=== PATIENT | male | born 2000 | race Caucasian/White ===

== ENCOUNTER 2022-03-02 17:49 | Emergency (ER) | payer OTHER ==
[~2022-03-02] VITALS: Ht 182.9 cm; Wt 81.8 kg
[2022-03-02 17:50] VITALS: BP 135/68
[2022-03-02] MEDS ORDERED: D ME PO (17:59)
[2022-03-02] MEDS ORDERED: VENTAER INH (18:50)
[2022-03-02] MEDS ORDERED: MUCI600T31 PO (18:50)
== END 2022-03-02 19:51 | disposition home or self-care (01) ==
LOC: M ED 17:49
DX: J06.9 Acute upper respiratory infection, unspecified (principal); Z20.822 Contact with and (suspected) exposure to COVID-19; Z77.098 Contact with and (suspected) exposure to other hazardous, chiefly nonmedicinal, chemicals